=== PATIENT | female | born 1980 | race Two or more races ===

== ENCOUNTER 2020-08-14 23:41 | Emergency (ER) | payer SELFPAY ==
[~2020-08-14] VITALS: Ht 170.2 cm; Wt 85.0 kg
[2020-08-15 00:48] LABS: BASOPHILS % 1.1 % (0.0-2.0); EOSINOPHILS % 2.1 % (0.0-5.0); HEMOGLOBIN. 13.7 g/dL (12.0-16.0); LYMPHOCYTES % 51.8 % (20.0-50.0); MEAN CORPUSCULAR HEMOGLOBIN 28.3 pg (28.0-32.0); MEAN CORPUSCULAR VOLUME 86.6 fL (81.0-99.0); MEAN PLATELET VOLUME 7.4 fl (7.4-10.4); MONOCYTES % 6.2 % (2.0-8.0); NEUTROPHILS % 38.8 % (40.0-76.0); PLATELET 290 x1000/uL (130-400); RED BLOOD CELL COUNT 4.85 mill/uL (4.2-5.4)
[2020-08-15 00:54] LABS: CHLORIDE 105 mEq/L (98-107)
[2020-08-15] MEDS ORDERED: IOHEXOL-350 100 ML BOTTLE ONE (03:47)
[2020-08-15 05:45] VITALS: BP 108/51
== END 2020-08-15 05:56 | disposition home or self-care (01) ==
LOC: ER 23:49
DX: R07.89 Other chest pain (principal)
CPT/HCPCS: 36415; 71045; 71275; 80053; 81025; 84484; 85025; 85379; 93005; 99285; Q9967